=== PATIENT | female | born 1945 | race Asian ===

== ENCOUNTER 2021-03-28 22:52 | Inpatient (IN) | payer MEDICARE, SELFPAY ==
[~2021-03-28] VITALS: Ht 157.5 cm; Wt 67.1 kg
[2021-03-28 22:59] VITALS: BP 144/78
--- NOTE | 2021-03-28 23:02 | NUR ---
to lobby a/w bed ambulatory
--- NOTE | 2021-03-29 00:10 | NUR ---
TO BED 9 FROM LOBBY WITH C/O EPIGASTRIC PAIN X 6 HRS. STATES HAS HAD NAUSEA AND VOMITING. SKIN IS WARM AND DRY.
[2021-03-29] MEDS ORDERED: NACL 0.9% 1,000 ML IV ONE ×2 (01:35→04:45)
[2021-03-29] MEDS ORDERED: fentaNYL citrate 0.05 MG/ML VIAL IVP ONE (01:35)
[2021-03-29] MEDS ORDERED: ONDANSETRON 4 MG/2 ML VIAL IVP ONE (01:35)
--- NOTE | 2021-03-29 02:22 | NUR ---
Jordyn brown in [facility] - 03/29/21 at 0223 by IVORY Georgina at 0220
[2021-03-29 02:32] LABS: LACTATE DEHYDROGENASE 389 U/L (81-234)
[2021-03-29 02:35] LABS: BASOPHILS % (AUTO) 0.2 % (0.0-2.0); EOSINOPHILS % (AUTO) 0.1 % (0.0-4.0); HEMATOCRIT 40.6 % (36-48); HEMOGLOBIN 13.5 g/dL (12.0-16.0); LYMPHOCYTES % (AUTO) 8.2 % (20.5-51.1); MEAN CORPUSCULAR HEMOGLOBIN 32 pg (27-31); MEAN CORPUSCULAR HGB CONC 33 g/dL (33-37); MONOCYTES # (AUTO) 0.6 K/uL (0.8-1.0); MONOCYTES % (AUTO) 4.9 % (1.7-9.3); NEUTROPHILS # (AUTO) 10.4 K/uL (1.8-7.7); PLATELET COUNT (AUTO) 228 K/uL (140-450); RED BLOOD CELL COUNT(AUTO) 4.19 MIL/uL (4.20-5.40); RED CELL DISTRIBUTION WIDTH 13.3 % (11.6-13.7)
[2021-03-29 02:36] LABS: ANION GAP 14.2 (8-16); ASPARTATE AMINOTRANSFERASE 370 U/L (15-37); CARBON DIOXIDE 27.8 mmol/L (21-32); CHLORIDE 102 mmol/L (98-107); CREATININE 0.7 mg/dL (0.6-1.3); GLUCOSE 149 mg/dL (74-106); SODIUM SERUM 140 mmol/L (136-145); TOTAL BILIRUBIN 1.5 mg/dL (0.0-1.0); UREA NITROGEN, BLOOD 12 mg/dL (7-18)
[2021-03-29 02:37] LABS: ALBUMIN 4.2 g/dL (3.4-5.0)
--- NOTE | 2021-03-29 02:55 | NUR ---
TO CT VIA [facility]
[2021-03-29 03:03] LABS: NEUTROPHILS % (AUTO) 86.6 % (42.2-75.2)
[2021-03-29 03:04] LABS: LIPASE 29256 U/L (73-393)
--- NOTE | 2021-03-29 03:05 | NUR ---
RETURNED FROM CT
--- NOTE | 2021-03-29 03:48 | NUR ---
AMBULATED TO BR WITH MINIMAL ASSIST.
[2021-03-29] MEDS ORDERED: HYDROmorphone PFS 2 MG/ML SYR IVP ONE (04:45)
--- NOTE | 2021-03-29 05:29 | NUR ---
SPOKE WITH NATHAN, ELECTRICAL POWER STATION TECHNICIAN FOR INSURANCE.
--- NOTE | 2021-03-29 06:00 | NUR ---
AMBULATED TO BR WITH STEADY GAIT. CONTINUES TO DENY NEED FOR PAIN MEDICATION
[2021-03-29 07:24] LABS: APPEARANCE,URINE CLEAR (CLEAR); BILIRUBIN,URINE NEGATIVE (NEGATIVE); BLOOD, URINE TRACE-I (NEGATIVE); COLOR,URINE YELLOW (YELLOW); LEUKOCYTE ESTERASE ,URINE NEGATIVE (NEGATIVE); NITRITE, URINE NEGATIVE (NEGATIVE); PH,URINE 7.5 (5.0-9.0); UGLUCOSE NEGATIVE (NEGATIVE)
[2021-03-29 07:36] LABS: RBC,URINE 0-5 /HPF (0-5); WBC,URINE 0-5 /HPF (0-5)
--- NOTE | 2021-03-29 08:07 | NUR ---
Patient appears to be resting comfortably in bed. Vital Signs within normal limits. Respirations even and unlabored. Safety measures are in place, will continue to monitor
[2021-03-29] MEDS ORDERED: DOCUSATE SODIUM 100 MG GELCAP PO PRN (10:20)
[2021-03-29] MEDS ORDERED: ONDANSETRON 4 MG/2 ML VIAL IM/IVP PRN (10:20)
[2021-03-29] MEDS ORDERED: POTASSIUM CHLORIDE 40 MEQ, LIDOCAINE MPF 1% 25 MG in NACL 0.9% 250 ML IV PRN (10:20)
[2021-03-29] MEDS ORDERED: MAG SULF 2000 MG/WATER PREMIX 50 ML IV PRN (10:20)
[2021-03-29] MEDS ORDERED: SODIUM PHOS / POTASSIUM PHOS 1 PKT PDR PO PRN (10:20)
[2021-03-29 10:44] LABS: PHOSPHORUS 2.9 mg/dL (2.5-4.9)
--- NOTE | 2021-03-29 10:53 | NUR ---
Jordyn brown in ED - 03/29/21 at 1102 by [facility] AT BEDSIDE. UNABLE TO DRAW BLOOD AT THIS TIME. MADE AWARE.
--- NOTE | 2021-03-29 11:12 | NUR ---
Pt report given to Bridget KOWALSKI. Transfer of care at this time.
--- NOTE | 2021-03-29 11:12 | NUR ---
assumed care of this patient, report provided by Katty RN
--- NOTE | 2021-03-29 11:13 | NUR ---
assumed care of this patient, report provided by Katty RN
--- NOTE | 2021-03-29 11:20 | NUR ---
received awake and alert, skin is warm and dry, resp even and unlabored. Reports no current epigastric pain. Up to Br with slow steady gait, minimal assistance was required. VS are stable. Protonix 40mg administered slow IVP, patient educated on the role of Protonix for her. Patient verbalizes understanding.
[2021-03-29] MEDS: PANTOPRAZOLE 40 MG INJ VIAL IVP SCH (12:33)
[2021-03-29] MEDS: NACL 0.9% 1,000 ML IV SCH ×2 (13:07→17:00)
--- NOTE | 2021-03-29 15:09 | NUR ---
REPORT GIVEN TO MS MEGHANA LAURENT.
--- NOTE | 2021-03-29 15:30 | NUR ---
PT WILL BE IN ROOM 112A
--- NOTE | 2021-03-29 15:47 | NUR ---
RECEIVED PT ALERT, AWAKE ORIENTED, NO C/O PAIN, SKIN WARM TO TOUCH RESP. EVEN AND UNLABORED,SKIN INTACT , ORIENT TO ROOM KEEP CALL LIGHT WITHIN EASY REACH.
[2021-03-29 15:52] VITALS: BP 98/62
--- NOTE | 2021-03-29 16:41 | NUR ---
IVF ONGOING, PATIENT ALERT, AWAKE, ORIENTED, NO C/O PAIN, CALL LIGHT WITHIN EASY REACH, ENDORSED TO SHAYAN.
[2021-03-29 17:58] LABS: BARBITURATE, URINE NEGATIVE ng/ml (NEG <=200); BENZODIAZEPINE, URINE NEGATIVE ng/mL (NEG <=200); CANNABINOID, URINE NEGATIVE ng/mL (NEG <=50); COCAINE, URINE NEGATIVE ng/mL (NEG <=300); OPIATE, URINE NEGATIVE ng/mL (NEG <=2000); PHENCYCLIDINE SCREEN,URINE NEGATIVE ng/mL (NEG <=25)
[2021-03-29] MEDS ORDERED: BEN10 PO (18:22)
[2021-03-29] MEDS ORDERED: cefTRIAXone 1,000 MG VIAL ONE (19:29)
--- NOTE | 2021-03-29 19:30 | NUR ---
ENDORSED TO NIGHT NURSE FOR CONTINUITY OF CARE.PT IS STABLE.
--- NOTE | 2021-03-29 19:32 | NUR ---
RECEIVED PT AWAKE ON BED, AAOX4, ABLE TO MAKE NEEDS KNOWN, DENIES ANY PAIN, MAINTAINED ON NPO, IV LINE INFILTRATED, WILL START A NEW IV LINE, PLAN OF CARE DISCUSSED, SAFETY MEASURES IN PLACE, CALL LIGHT WITHIN REACH.
[2021-03-29 20:00] VITALS: BP 155/64
--- NOTE | 2021-03-29 20:25 | NUR ---
PT AMBULATED TO BR WITH STEADY GAIT, VOIDED FREELY, BACK TO BED, NEW IV LINE INSERTED TO RT HAND, DUE IV ANTIBIOTICS ADMINISTERED, ALL NEEDS ATTENDED.
[2021-03-29] MEDS: MORPHINE SULFATE 2 MG/ML SYR IVP PRN (22:03)
[2021-03-29] MEDS: metroNIDAZOLE 500 MG/NS PREMIX 100 ML IV SCH (22:03)
[2021-03-30] MEDS: NACL 0.9% 1,000 ML IV SCH ×3 (00:17→13:35)
[2021-03-30] MEDS: HYDROcodone/APAP 5/325 MG 1 TAB TAB PO PRN ×3 (00:53→10:41)
--- NOTE | 2021-03-30 01:00 | NUR ---
PT COMPLAINING OF PAIN, MEDICATED PRN WITH NORCO, NO NAUSEA NOTED, IVF INFUSING WELL, MONITORED CLOSELY.
[2021-03-30 04:00] VITALS: BP 125/51
[2021-03-30] MEDS: metroNIDAZOLE 500 MG/NS PREMIX 100 ML IV SCH ×3 (04:36→20:33)
--- NOTE | 2021-03-30 05:10 | NUR ---
PT AMBULATED TO BR AND VOIDED FREELY, COMPLAINING OF ABDOMINAL PAIN, PREFER NORCO, MEDICATED PRN WITH NORCO, MONITORED CLOSELY.
--- NOTE | 2021-03-30 07:12 | NUR ---
PT SLEEPING, NO SIGNS OF DISTRESS, REPORT GIVEN TO MEGHANA POON FOR CONTINUITY OF CARE.
--- NOTE | 2021-03-30 07:59 | NUR ---
RECEIVED REPORT FROM INDUSTRIAL THERAPIST AT BEDSIDE FOR CONTINUITY OF CARE. PATIENT ASLEEP, NOT IN DISTRESS NOTED. WITH IVF ON GOING AND INFUSING WELL. NPO OBSERVED. NEEDS ATTENDED, WILL CONTINUE TO MONITOR.
[2021-03-30 08:00] VITALS: BP 134/64
[2021-03-30 08:02] LABS: ALBUMIN 2.8 g/dL (3.4-5.0); AMYLASE 117 U/L (25-115); ANION GAP 12.7 (8-16); ASPARTATE AMINOTRANSFERASE 157 U/L (15-37); BASOPHILS % (AUTO) 0.2 % (0.0-2.0); CARBON DIOXIDE 23.7 mmol/L (21-32); CHLORIDE 107 mmol/L (98-107); CREATININE 0.6 mg/dL (0.6-1.3); EOSINOPHILS # (AUTO) 0.1 K/uL (0-0.4); EOSINOPHILS % (AUTO) 1.1 % (0.0-4.0); GLUCOSE 120 mg/dL (74-106); HEMATOCRIT 33.6 % (36-48); HEMOGLOBIN 11.3 g/dL (12.0-16.0); LIPASE 230 U/L (73-393); LYMPHOCYTES # (AUTO) 1.2 K/uL (2.5-16.5); LYMPHOCYTES % (AUTO) 14.3 % (20.5-51.1); MEAN CORPUSCULAR HEMOGLOBIN 33 pg (27-31); MEAN CORPUSCULAR HGB CONC 34 g/dL (33-37); MEAN CORPUSCULAR VOLUME 97.8 fL (80-94); MONOCYTES # (AUTO) 0.5 K/uL (0.8-1.0); MONOCYTES % (AUTO) 5.9 % (1.7-9.3); NEUTROPHILS # (AUTO) 6.7 K/uL (1.8-7.7); NEUTROPHILS % (AUTO) 78.5 % (42.2-75.2); PLATELET COUNT (AUTO) 173 K/uL (140-450); POTASSIUM 3.4 mmol/L (3.5-5.1); RED BLOOD CELL COUNT(AUTO) 3.43 MIL/uL (4.20-5.40); RED CELL DISTRIBUTION WIDTH 13.3 % (11.6-13.7); SODIUM SERUM 140 mmol/L (136-145); TOTAL BILIRUBIN 1.4 mg/dL (0.0-1.0); UREA NITROGEN, BLOOD 11 mg/dL (7-18); WHITE BLOOD COUNT (AUTO) 8.6 K/uL (4.8-10.8)
--- NOTE | 2021-03-30 08:43 | NUR ---
PATIENT HAS BEEN SCREENED AND CATEGORIZED MODERATE NUTRITION RISK. PATIENT WILL BE SEEN WITHIN 3-5 DAYS OF ADMISSION. 04/01/21 04/03/[address]
--- NOTE | 2021-03-30 10:00 | NUR ---
AMBULATES TO THE BATHROOM, IV ACCIDENTALLY OUT, AND RE CONNECT.
--- NOTE | 2021-03-30 10:35 | NUR ---
DR. NAGY SPOKE TO THE PATIENT AND DISCUSSED THE PLAN OF CARE, FOR SURGERY TMW.
[2021-03-30] MEDS: PANTOPRAZOLE 40 MG INJ VIAL IVP SCH (10:40)
[2021-03-30] MEDS: MORPHINE SULFATE 2 MG/ML SYR IVP PRN (14:20)
[2021-03-30 16:00] VITALS: BP 138/64
--- NOTE | 2021-03-30 19:21 | NUR ---
REPORT GIVEN TO MEGHANA HARVEY FOR CONTINUITY OF CARE. PATIENT REMAIN STABLE.
--- NOTE | 2021-03-30 19:22 | NUR ---
RECEIVED PT SLEEPING, EASILY AROUSABLE, DENIES ANY PAIN, NO SOB NOTED, IVF INFUSING WELL, FOR LAP JONH TOMORROW, INSTRUCTED NPO AFTER MIDNIGHT, PLAN OF CARE DISCUSSED, SAFETY MEASURES IN PLACE, CALL LIGHT WITHIN REACH.
[2021-03-30 20:00] VITALS: BP 143/65
[2021-03-30] MEDS: ACETAMINOPHEN 325 MG TAB PO PRN (20:39)
--- NOTE | 2021-03-30 21:00 | NUR ---
DUE IV ANTIBIOTIC ADMINISTERED, PROVIDED WITH JELLO X2 AND JUICE PER REQUEST, TOLERATED WELL, ALL NEEDS ATTENDED.
--- NOTE | 2021-03-31 01:20 | NUR ---
PT COMPLAINING OF NAUSEA, NO VOMITING NOTED, MEDICATED PRN WITH ZOFRAN IVP, REMINDED PT NPO AFTER MIDNIGHT, VERBALIZED UNDERSTANDING, IVF INFUSING WELL, MONITORED CLOSELY.
[2021-03-31 04:00] VITALS: BP 124/55
[2021-03-31] MEDS: MORPHINE SULFATE 2 MG/ML SYR IVP PRN (04:36)
--- NOTE | 2021-03-31 04:36 | NUR ---
PT COMPLAINING OF PAIN, VITAL SIGNS STABLE, MEDICATED PRN WITH MORPHINE, MAINTAINED ON NPO, IVF INFUSING WELL, MONITORED CLOSELY.
[2021-03-31] MEDS: metroNIDAZOLE 500 MG/NS PREMIX 100 ML IV SCH ×3 (04:37→21:03)
[2021-03-31] MEDS: NACL 0.9% 1,000 ML IV SCH ×2 (04:37→21:30)
--- NOTE | 2021-03-31 07:20 | NUR ---
PT AWAKE, NO SIGNS OF DISTRESS, BEDSIDE REPORT GIVEN TO RN ALEX FOR CONTINUITY OF CARE.
--- NOTE | 2021-03-31 07:22 | NUR ---
RECEIVED REPORT FROM PROCUREMENT CLERK RN. PATIENT IS IN BED RESTING. NO S/S DISTRESS. CALL LIGHT WITHIN REACH. ALL SAFETY MEASURES IN PLACE.
[2021-03-31 07:25] LABS: BASOPHILS % (AUTO) 0.2 % (0.0-2.0); EOSINOPHILS # (AUTO) 0.1 K/uL (0-0.4); EOSINOPHILS % (AUTO) 0.6 % (0.0-4.0); HEMATOCRIT 34.2 % (36-48); HEMOGLOBIN 11.5 g/dL (12.0-16.0); LYMPHOCYTES # (AUTO) 1.6 K/uL (2.5-16.5); LYMPHOCYTES % (AUTO) 16.9 % (20.5-51.1); MEAN CORPUSCULAR HEMOGLOBIN 33 pg (27-31); MEAN CORPUSCULAR HGB CONC 34 g/dL (33-37); MEAN CORPUSCULAR VOLUME 96.9 fL (80-94); MONOCYTES # (AUTO) 0.7 K/uL (0.8-1.0); MONOCYTES % (AUTO) 6.7 % (1.7-9.3); NEUTROPHILS # (AUTO) 7.4 K/uL (1.8-7.7); NEUTROPHILS % (AUTO) 75.6 % (42.2-75.2); PLATELET COUNT (AUTO) 168 K/uL (140-450); PROTHROMBIN TIME 10.8 secs (10.8-13.4); RED BLOOD CELL COUNT(AUTO) 3.53 MIL/uL (4.20-5.40); RED CELL DISTRIBUTION WIDTH 13.4 % (11.6-13.7); WHITE BLOOD COUNT (AUTO) 9.8 K/uL (4.8-10.8)
[2021-03-31 08:00] VITALS: BP 147/62
[2021-03-31 08:18] LABS: ALBUMIN 2.6 g/dL (3.4-5.0); ANION GAP 10.1 (8-16); ASPARTATE AMINOTRANSFERASE 61 U/L (15-37); CARBON DIOXIDE 24.9 mmol/L (21-32); CHLORIDE 108 mmol/L (98-107); CREATININE 0.5 mg/dL (0.6-1.3); GLUCOSE 124 mg/dL (74-106); SODIUM SERUM 140 mmol/L (136-145); TOTAL BILIRUBIN 0.7 mg/dL (0.0-1.0); UREA NITROGEN, BLOOD 7 mg/dL (7-18)
--- NOTE | 2021-03-31 10:05 | NUR ---
PATIENT RECEIVING ECHO PROCEDURE DONE AT BEDSIDE. NO S/S OF DISTRESS. CALL LIGHT WITHIN REACH. ALL SAFETY MEASURES IN PLACE.
[2021-03-31] MEDS: HYDROcodone/APAP 5/325 MG 1 TAB TAB PO PRN (10:15)
[2021-03-31] MEDS: PANTOPRAZOLE 40 MG INJ VIAL IVP SCH (10:38)
[2021-03-31] MEDS ORDERED: BUPIVACAINE-MPF/EPI 0.25% 30 ML VIAL INJ ONE (13:27)
[2021-03-31] MEDS ORDERED: LIDOCAINE 1% 500 MG/50 ML VIAL ONE (13:27)
--- NOTE | 2021-03-31 13:40 | NUR ---
OR NURSES ON FLOOR TO TAKE PATIENT FOR PROCEDURE. IVF STOPPED. PATIENT STABLE.
[2021-03-31] MEDS ORDERED: ETOMIDATE 20 MG/10 ML VIAL IVP ONE (14:00)
[2021-03-31] MEDS ORDERED: SEVOFLURANE 250 ML BTL INH ONE (14:00)
[2021-03-31] MEDS ORDERED: fentaNYL citrate 0.05 MG/ML VIAL ONE (14:00)
[2021-03-31] MEDS ORDERED: ROCURONIUM 50 MG/5 ML VIAL IV ONE (14:00)
[2021-03-31] MEDS ORDERED: DEXAMETHASONE 4 MG/ML VIAL ONE (14:00)
[2021-03-31] MEDS ORDERED: LIDOCAINE 2% 100 MG/5 ML SYR IVP ONE (14:00)
[2021-03-31] MEDS ORDERED: HYDROmorphone 1 MG/ML AMP IVP PRN ×2 (14:15→15:30)
[2021-03-31] MEDS ORDERED: MORPHINE SULFATE 4 MG/ML SYR ONE (15:07)
[2021-03-31] MEDS ORDERED: ACETAMINOPHEN 100 ML IV ONE (15:29)
[2021-03-31] MEDS ORDERED: LACTATED RINGERS 1,000 ML IV SCH (15:30)
[2021-03-31] MEDS ORDERED: ONDANSETRON 4 MG/2 ML VIAL IVP PRN (15:30)
[2021-03-31] MEDS ORDERED: ACETAMINOPHEN 65 ML IV PRN (15:35)
[2021-03-31 16:00] VITALS: BP 145/62
[2021-03-31] MEDS ORDERED: HYDROmorphone PFS 2 MG/ML SYR ONE (16:11)
--- NOTE | 2021-03-31 16:37 | NUR ---
PATIENT RETURNED TO FLOOR FROM PROCEDURE. VITAL SIGNS STABLE. WILL CONTINUE TO MONITOR.
--- NOTE | 2021-03-31 17:45 | NUR ---
PATIENT COMPLAINED OF PAIN. GAVE PRN MEDICATION. ALL SAFETY MEASURES IN PLACE. WILL CONTINUE TO MONITOR.
[2021-03-31] MEDS: ACETAMINOPHEN 325 MG TAB PO PRN (17:53)
--- NOTE | 2021-03-31 19:15 | NUR ---
ENDORSED PATIENT TO PHYSICAL THERAPY TEACHER RN FOR CONTINUITY OF CARE. PATIENT STABLE. ALL SAFETY MEASURES IN PLACE.
[2021-03-31 20:00] VITALS: BP 130/65
--- NOTE | 2021-03-31 20:05 | NUR ---
PT IS AWAKE,A&O.RESP.UNLABORED.LUNGS CLEAR.K-RIDER INFUSING WELL.PT HAS C/O BURNING .RATE ALREADY DECREASED BY AM RN.CALL LIGHT IN REACH.WILL CONT.MONITORING.
[2021-03-31] MEDS ORDERED: POTASSIUM CHLORIDE 10 MEQ TABER PO ONE (23:05)
[2021-04-01] MEDS: HYDROcodone/APAP 5/325 MG 1 TAB TAB PO PRN ×2 (00:13→11:37)
[2021-04-01] MEDS ORDERED: ZOLPIDEM 5 MG TAB PO PRN (00:15)
--- NOTE | 2021-04-01 00:38 | NUR ---
NOTIFY MD OF BURNING K-RIDER SHE ORDERED K DUR PO 40 MEQ.IT GIVEN ALSO HAD C/O PAIN PO MED GIVEN.WILL REASSESS PER PROTOCOL.
[2021-04-01 04:00] VITALS: BP 126/66
[2021-04-01] MEDS: metroNIDAZOLE 500 MG/NS PREMIX 100 ML IV SCH ×2 (04:51→13:19)
--- NOTE | 2021-04-01 06:18 | NUR ---
SLEPT WELL.IVF INFUSING WELL.ANOTHER IV STARTED IN RT.HAND W/#24G.STILL USE OLD ONE.POSSIBLE D/C TODAY.NO DISTRESS NOTED.
--- NOTE | 2021-04-01 07:19 | NUR ---
ENDORSED TO AM RN IN STABLE CONDITION.
--- NOTE | 2021-04-01 07:21 | NUR ---
RECEIVED REPORT FROM HIGH SPEED WARPER TENDER RN. PATIENT IS RESTING IN BED. NO S/S OF DISTRESS. CALL LIGHT WITHIN REACH. ALL SAFETY MEASURES IN PLACE.
[2021-04-01 07:56] LABS: BASOPHILS % (AUTO) 0.2 % (0.0-2.0); EOSINOPHILS % (AUTO) 0.1 % (0.0-4.0); HEMATOCRIT 32.6 % (36-48); LYMPHOCYTES # (AUTO) 1.4 K/uL (2.5-16.5); LYMPHOCYTES % (AUTO) 11.8 % (20.5-51.1); MEAN CORPUSCULAR HEMOGLOBIN 33 pg (27-31); MEAN CORPUSCULAR HGB CONC 34 g/dL (33-37); MEAN CORPUSCULAR VOLUME 96.5 fL (80-94); MONOCYTES # (AUTO) 0.6 K/uL (0.8-1.0); MONOCYTES % (AUTO) 4.9 % (1.7-9.3); NEUTROPHILS # (AUTO) 9.8 K/uL (1.8-7.7); PLATELET COUNT (AUTO) 158 K/uL (140-450); RED BLOOD CELL COUNT(AUTO) 3.38 MIL/uL (4.20-5.40); WHITE BLOOD COUNT (AUTO) 11.8 K/uL (4.8-10.8)
--- NOTE | 2021-04-01 07:56 | NUR ---
IVF ROCEPHIN NOT ADMINISTERED BY TICKET AGENT NURSE. OTHER IVF STILL RUNNING.
[2021-04-01 08:04] LABS: ALBUMIN 2.6 g/dL (3.4-5.0); ASPARTATE AMINOTRANSFERASE 66 U/L (15-37); CARBON DIOXIDE 24.8 mmol/L (21-32); CHLORIDE 110 mmol/L (98-107); CREATININE 0.5 mg/dL (0.6-1.3); GLUCOSE 144 mg/dL (74-106); POTASSIUM 3.8 mmol/L (3.5-5.1); SODIUM SERUM 142 mmol/L (136-145); TOTAL BILIRUBIN 0.4 mg/dL (0.0-1.0); UREA NITROGEN, BLOOD 8 mg/dL (7-18)
[2021-04-01] MEDS: PANTOPRAZOLE 40 MG INJ VIAL IVP SCH (09:25)
--- NOTE | 2021-04-01 09:30 | NUR ---
ADMINISTERED SCHEDULED MEDICATION PANTOPRAZOLE 40 MG IV PUSH. PT TOLERATED WELL AND NO DISTRESS NOTED.PT WAS SEEN BY DR NAGY AND OK TO DISCHARGE INSTRUCTED TO NO HEAVY LIFTING, CAN SHOWER AND FOLLOW UP AFTER 3-4 WEEKS AFTER DISCHARGE. WILL CONTINUE TO MONITOR.
--- NOTE | 2021-04-01 11:37 | NUR ---
PT COMPLAINS OF ABDOMINAL PAIN 12/30 CHECK VITAL SIGNS BP 127/79 OR 58 PAIN MEDICATION GIVEN.
[2021-04-01 12:00] VITALS: BP 127/79
[2021-04-01] MEDS ORDERED: ACET-9525 PO (13:01)
[2021-04-01] MEDS: NACL 0.9% 1,000 ML IV SCH (13:07)
[2021-04-01 13:52] VITALS: BP 153/69
--- NOTE | 2021-04-01 15:55 | NUR ---
PATIENT GIVEN DISCHARGE INSTRUCTIONS. PT VERBALIZED UNDERSTANDING. DISCONTINUED IVF AND REMOVED IV. IV CATH INTACT AND NO BLEEDING. PATIENT STABLE.
--- NOTE | 2021-04-01 15:56 | NUR ---
DC PLANNING: PATIENT LIVES IN A SINGLE STORY HOUSE WITH HER SON AND . PATIENT IS INDEPENDENT WITH ADL'S AND AMBULATION, SOMETIMES USES A SPC. NO H/O HOME HEALTH, NO OTHER DME. PLAN IS TO DC HOME WITH FAMILY WHEN STABLE.
== END 2021-04-01 16:00 | disposition home or self-care (01) | DRG 417 ==
LOC: MED 22:52 → MTU 03-29 06:06
PROVIDERS: ADMIT Hospitalist; ATTEND Hospitalist
PROC: BF502Z0 Other Imaging of Bile Ducts using Fluorescing Agent, Intraoperative (ICD-10-PCS; 2021-03-31)
PROC: 0FT44ZZ Resection of Gallbladder, Percutaneous Endoscopic Approach (ICD-10-PCS; principal; 2021-03-31 15:00)
DX: K85.10 Biliary acute pancreatitis without necrosis or infection (principal); E43 Unspecified severe protein-calorie malnutrition; K81.0 Acute cholecystitis; Z88.8 Allergy status to other drugs, medicaments and biological substances; Z20.822 Contact with and (suspected) exposure to COVID-19; Z87.11 Personal history of peptic ulcer disease; Z98.51 Tubal ligation status; R74.01 Elevation of levels of liver transaminase levels; E80.6 Other disorders of bilirubin metabolism; R73.9 Hyperglycemia, unspecified; K76.89 Other specified diseases of liver; D72.829 Elevated white blood cell count, unspecified; D64.9 Anemia, unspecified; Z90.49 Acquired absence of other specified parts of digestive tract; Z98.891 History of uterine scar from previous surgery; Z82.3 Family history of stroke; Z86.73 Personal history of transient ischemic attack (TIA), and cerebral infarction without residual deficits; Z68.27 Body mass index [BMI] 27.0-27.9, adult; E87.6 Hypokalemia
CPT/HCPCS: 36415; 71045; 76700; 77003; 80053; 80305; 81001; 82150; 83615; 83690; 83735; 84100; 84484; 85025; 85610; 85730; 87081; 93005; 96361; 96374; 96375; 99285; C1887; C9113; J0696; J1100; J1170; J2001; J2270; J2405; J3010; J3480; J3490; J7030; J7060; J7120; Q9967